=== PATIENT | male | born 1970 | race Caucasian/White ===

== ENCOUNTER 2022-11-16 09:39 | Inpatient (IN) ==
--- NOTE | 2022-11-16 11:00 | XRay Report ---
XR chest 1V not portable HISTORY: 52 years-old Male Chest pain, nonspecific COMPARISON: 03/31/2022 TECHNIQUE: PA view of the chest FINDINGS: Cardiomediastinal and hilar silhouettes are within normal limits. No pneumothorax, pleural effusion, airspace consolidation or pulmonary edema. Bones of the chest appear grossly intact. IMPRESSION: No acute process. ACT 112: Negative or not required by law. The above report was generated using voice recognition software. It may contain grammatical, syntax o r spelling errors. Electronically signed by: Murray Recio M.D. 11/16/2022 10:59 AM
--- NOTE | 2022-11-16 11:13 | Emergency Department Note ---
History of Present Illness General Chief complaint: Cardiac Assessment Stated complaint: POSSIBLE CARDIAC ATTACK Time Seen by Provider: 11/16/22 10:39 History of Present Illness 52-year-old male presents emergency department substernal chest pressure that radiated to his back. Patient was lifting an amplifier that weighs 60 pounds after that he felt dizzy he had substernal chest pressure that radiated to his back. There is no diaphoresis no shortness of breath no nausea no vomiting no jaw pain no neck pain. There are no other mitigating or alleviating factors. It went away very quickly and then returned a few minutes later with substernal chest pressure. Home Medications Medication Instructions Recorded Confirmed Type ibuprofen 200 mg tablet (Advil) 400 mg PO Q6H PRN Pain 11/16/22 11/16/22 History Allergies Allergy/AdvReac Type Severity Reaction Status Date / Time No Known Allergies Allergy Unverified 11/16/22 12:36 Past Med/Surg History Medical History Anxiety Prostatitis CHRONIC Surgical History History of open reduction and internal fixation (ORIF) procedure RIGHT FOREARM History of tonsillectomy History of tooth extraction WISDOM TEETH Family History Father Family history of diabetes mellitus Social History Smoking Status: Former smoker Cigarettes Per Day: 20; Second Hand Exposure: Yes (MOTHER SMOKED); Do You Dip or Chew Tobacco: No; Hx Alcohol Use: Yes Alcohol type: beer, wine and hard liquor Hx Substance Use: No Preferred Language: Belarusian Communication Ability: Effective Community Relations Officer Required: No Beliefs That Will Affect Care: None Current Living Situation: Spouse and Family current occupational status: employed current occupation: [employer] Feels Safe at Home: Yes Assistive Devices: Glasses Review of Systems A total of 10 systems reviewed and were otherwise negative Cardiovascular: + chest pain Physical Exam Vital Signs Vital Signs - 24 hr 11/16/22 09:43 11/16/22 11:29 11/16/22 11:29 Temperature 36.5 C Temperature Source Temporal Artery Scan Pulse Rate 95 H 67 Pulse Rhythm Regular Regular Respiratory Rate 20 16 Respiratory Effort / Characteristics Non-Labored Spontaneous Respiratory Depth Normal Blood Pressure 149/83 H Blood Pressure Mean 105 Pulse Oximetry 97 98 98 Oxygen Delivery Method Room Air Room Air Sepsis Recent Fever Within 48 Hours No Sepsis New/Unexplained Change in Mental Status No Sepsis Action Taken by Nursing No Action Required 11/16/22 12:27 Temperature Temperature Source Pulse Rate 58 L Pulse Rhythm Respiratory Rate Respiratory Effort / Characteristics Respiratory Depth Blood Pressure Blood Pressure Mean Pulse Oximetry Oxygen Delivery Method Sepsis Recent Fever Within 48 Hours Sepsis New/Unexplained Change in Mental Status Sepsis Action Taken by Nursing GENERAL: Patient is awake alert in no acute distress patient is resting comfortably and showing no signs of anxiety EYES: The conjunctivae are clear. The pupils are round and reactive. EARS, NOSE, MOUTH AND THROAT: The nose is without any evidence of any deformity. Mucous membranes are moist. Tongue is midline. NECK: The neck is nontender and supple. RESPIRATORY: Normal respiratory effort is noted there is no evidence of wheezing rhonchi or rales CARDIOVASCULAR: Regular rate and rhythm noted there no murmurs rubs or gallops normal S1 normal S2. GASTROINTESTINAL: The abdomen is soft. Abdomen is nontender. BACK: No midline tenderness or or step-off noted range of motion in flexion extension as well as rotation no signs of muscle spasm noted MUSCULOSKELETAL/EXTREMITIES: There is no evidence of gross deformity full range of motion is noted in the hips and shoulders. SKIN: There is no obvious evidence of any rash. There are no petechiae, pallor or cyanosis noted. NEUROLOGIC: Patient is awake alert and oriented x3 strength is symmetric Course Reevaluation(s) Reevaluation #1: Patient is currently pain-free. Patient was given aspirin in the emergency department Time: 12:12 Consultations Consultation #1: Case was discussed with the [facility] hospitalist Dr. Oleary for admission for ACS Time: 12:12 Administered Medications Discontinued Medications Aspirin (Aspirin Chew 324 Mg) 324 mg PO NOW STA Stop: 11/16/22 11:50 Last Admin: 11/16/22 11:55 Dose: 324 mg Documented By: DOLLY Medical Decision Making Medical Records Attestation: I reviewed the patient's medical records. Home Medications Current Medication List: was personally reviewed by me Laboratory Data Attestation: I reviewed the patient's lab results. Patient has a mildly elevated troponin 11/16/22 11:11/16/22 11:01 Lab Results 11/16/22 11/16/22 11/16/22 Range/Units 11:01 11:01 11:01 WBC 5.85 (4.8-10.8) K/ul RBC 5.25 (4.70-6.10) M/uL Hgb 15.5 (14.0-18.0) g/dl Hct 45.0 (42.0-52.0) % MCV 85.7 (80.0-100.0) fL MCH 29.5 (25.0-34.0) pg MCHC 34.4 (32.0-36.0) g/dL RDW Std Deviation 38.3 (36.4-46.3) fL RDW Coeff of Regina 12.3 (11.5-14.5) % Plt Count 230 (130-400) K/uL MPV 9.5 (9.4-12.4) fL Immature Gran % (Auto) 0.7 % Neut % (Auto) 72.3 % Lymph % (Auto) 17.9 % Wy[place] % (Auto) 7.2 % Eos % (Auto) 1.2 % Baso % (Auto) 0.7 % Neut # (Auto) 4.23 (1.40-6.50) K/uL Lymph # (Auto) 1.05 L (1.2-3.4) K/uL Wy[place] # (Auto) 0.42 (0.11-0.59) K/uL Eos # (Auto) 0.07 (0-0.50) K/uL Baso # (Auto) 0.04 (0-0.2) K/uL Immature Gran # (Auto) 0.04 (0.01-0.20) K/uL PT 11.1 (9.0-12.0) Seconds INR 1.0 (0.9-1.1) APTT 27.5 (21.0-31.0) Seconds PTT Ratio 1.0 Sodium 140 (136-145) mmol/L Potassium 3.9 (3.5-5.1) mmol/L Chloride 109 H (98-107) mmol/L Carbon Dioxide 27 (21-32) mmol/L Anion Gap 4 (3-11) BUN 17 (6-23) mg/dl Creatinine 0.90 (0.6-1.4) mg/dl Est Cr Clr Drug Dosing 130.3 ml/min Est GFR ( Amer) 113.4 ml/min Est GFR (Non-Af Amer) 97.9 ml/min BUN/Creatinine Ratio 18.9 (10-20) Glucose 99 (70-99(Fasting)) mg/dl Calcium 9.3 (8.6-10.3) mg/dl Total Bilirubin 0.7 (0.2-1.0) mg/dl AST 28 (13-39) U/L ALT 42 (7-52) U/L Alkaline Phosphatase 178 H (34-104) U/L Troponin I High Sens 39.9 H (0-20) pg/ml Total Protein 7.1 (6.0-8.3) gm/dl Albumin 4.6 (3.4-5.0) gm/dl Globulin 2.5 (2.5-4.0) gm/dl Albumin/Globulin Ratio 1.8 (0.9-2) Lipase 27 (11-82) U/L Imaging Data Attestation: I personally reviewed and interpreted this imaging study as follows: My Impression: Chest x-ray interpreted by me negative for infiltrate Radiologist's Impression: Chest X-Ray 11/16/22 10:25 XR chest 1V not portable HISTORY: 52 years-old Male Chest pain, nonspecific COMPARISON: 03/31/2022 TECHNIQUE: PA view of the chest FINDINGS: Cardiomediastinal and hilar silhouettes are within normal limits. No pneumothorax, pleural effusion, airspace consolidation or pulmonary edema. Bones of the chest appear grossly intact. IMPRESSION: No acute process. ACT 112: Negative or not required by law. The above report was generated using voice recognition software. It may contain grammatical, syntax or spelling errors. Electronically signed by: Murray Recio M.D. 11/16/2022 10:59 AM ECG Data Attestation: I personally reviewed and interpreted this ECG as follows: Additional Comments: EKG interpreted by me normal sinus rhythm rate of 79 normal intervals normal axis no obvious ST segment elevation or depression Telemetry was ordered by me, interpreted as normal sinus rhythm rate of 79 MDM Narrative Medical decision making differential diagnosis includes angina unstable angina acute coronary syndrome acute MN musculoskeletal chest pain electrolyte abnormality costochondritis Plan is to check labs, EKG, chest x-ray Independent history was provided to me by the patient's at bedside Patient's heart score is a 4 Patient has a mildly elevated troponin with a story that is concerning for acute coronary syndrome. The case was discussed with Dr. Oleary for admission, I do not suspect thoracic aortic dissection or pulmonary embolism. Patient was given aspirin in the emergency department Impression & Plan Chest pain, ACS (acute coronary syndrome) Discharge Plan Visit Data Chief Complaint: Cardiac Assessment Stated Complaint: POSSIBLE CARDIAC ATTACK ED Provider: Carmine Gonzalez Discharge Problem: Chest pain, ACS (acute coronary syndrome) Patient Disposition: Admitted As Inpatient Forms Stand Alone Forms: My [facility] Prescriptions Prescriptions: No Action ibuprofen [Advil] 200 mg Tablet 400 mg PO Q6H PRN (Reason: Pain) Referrals Referrals: Enrique Abdullahi [Primary Care Provider] -
[2022-11-16 11:35] LABS: Basophils # (auto) 0.04 K/uL (0-0.2); Basophils % (auto) 0.7 %; Eosinophils # (auto) 0.07 K/uL (0-0.50); Eosinophils % (auto) 1.2 %; Hemoglobin 15.5 g/dl (14.0-18.0); Immature Granulocytes # (auto) 0.04 K/uL (0.01-0.20); Immature Granulocytes % (auto) 0.7 %; Lymphocytes # (auto) 1.05 K/uL (1.2-3.4); Lymphocytes % (auto) 17.9 %; Mean Corpuscular Hemoglobin 29.5 pg (25.0-34.0); Mean Corpuscular Hgb Conc 34.4 g/dL (32.0-36.0); Mean Corpuscular Volume 85.7 fL (80.0-100.0); Mean Platelet Volume 9.5 fL (9.4-12.4); Monocytes # (auto) 0.42 K/uL (0.11-0.59); Monocytes % (auto) 7.2 %; Neutrophils # (auto) 4.23 K/uL (1.40-6.50); Neutrophils % (auto) 72.3 %; Platelet Count 230 K/uL (130-400); RDW Coefficient of Variation 12.3 % (11.5-14.5); RDW Standard Deviation 38.3 fL (36.4-46.3); Red Blood Count 5.25 M/uL (4.70-6.10); White Blood Count 5.85 K/ul (4.8-10.8)
[2022-11-16 11:39] LABS: Albumin Globulin Ratio 1.8 (0.9-2); Albumin Level 4.6 gm/dl (3.4-5.0); BUN Creatinine Ratio 18.9 (10-20); Bilirubin,Total 0.7 mg/dl (0.2-1.0); Calcium 9.3 mg/dl (8.6-10.3); Creatinine Clr Calc Pharmacy 130.3 ml/min; Est GFR (African American) 113.4 ml/min; Est GFR (Non-African American) 97.9 ml/min; Globulin 2.5 gm/dl (2.5-4.0); Potassium 3.9 mmol/L (3.5-5.1); Total Protein 7.1 gm/dl (6.0-8.3)
[2022-11-16 11:45] LABS: Troponin I High Sensitivity 39.9 pg/ml (0-20)
[2022-11-16] MEDS ORDERED: ASPIRIN CHEW 324 MG PO STA (11:49)
[2022-11-16 11:57] LABS: Partial Thromboplastin Time 27.5 Seconds (21.0-31.0); Prothrombin Time 11.1 Seconds (9.0-12.0)
--- NOTE | 2022-11-16 12:09 | History & Physical Report ---
Date of Service November 16, 2022 Assessment & Plan (1) Chest pain, rule out acute myocardial infarction: Plan: Initial high sensitivity troponin 39.9 pg/ml. Repeat pending - if significantly increasing will start on ACS treatment Either way will observe in PCU given HEART score 4 - moderate risk EKG without ischemic changes TTE ordered - result pending ASA 324mg PO given Further treatment depending on repeat troponin Plan VTE Prophylaxis - deferred pending repeat troponin Diet - heart healthy, NPO after midnight Disposition - observation to PCU Admission and Anticipated Discharge Date Admission Date: November 16, 2022 History of Present Illness Chief Complaint: Chest pain Primary Care Provider: Enrique Abdullahi Eliza Owen is a 52 year old male who presents to the ER with midsternal chest and back pain. Started around 8:45am this morning after moving 50-60lb amplifier and he went to text his . Lasted 5 minutes, went away when he sat down. Quickly returned when he stood up again this time lasting for 10 minutes. Resolved by the time he came to the ER. Pain is central burning stabbing pain substernal and behind his shoulder blades at his back. Associated flushing. No associated shortness of breath or nausea. Tingling in fingers at one point but no real radiation down arms or up to jaw. No orthopnea, PND, palpitations or claudication. History significant for smoking but quit 2 years ago - although had one today around 8am. Smoked half a pack a day for 20 years - 10 pack-year smoking. No family history of coronary artery disease. No hypertension of diabetes. He has been taking Advil as need for pain in heel of foot - x2 at a time usually once or twice a week for the last few months. His has also noted over last month he is fatigued after every meal. No rece nt acid reflux but does note if he sleeps on right side and eats too close to bed he gets reflux. He drank half a cup of coffee shortly before having the chest pain. Allergies Allergy/AdvReac Type Severity Reaction Status Date / Time No Known Allergies Allergy Unverified 11/16/22 12:36 Home Medications Medication Instructions Recorded Confirmed Type ibuprofen 200 mg tablet (Advil) 400 mg PO Q6H PRN Pain 11/16/22 11/16/22 History Past Med/Surg History Medical History Anxiety Prostatitis CHRONIC Surgical History History of open reduction and internal fixation (ORIF) procedure RIGHT FOREARM History of tonsillectomy History of tooth extraction WISDOM TEETH Family History Father Family history of diabetes mellitus Social History Smoking Status: Former smoker Tobacco Type: Cigarettes Age Started Using Tobacco: 30; Age Quit Using Tobacco: 50; packs per day: 0.5; Cigarettes Per Day: 20; Second Hand Exposure: No; Do You Dip or Chew Tobacco: No; Hx Alcohol Use: Yes Alcohol type: beer Hx Substance Use: No Preferred Language: Bulgarian Communication Ability: Effective Lithographic Press Feeder Required: No Beliefs That Will Affect Care: None Current Living Situation: Spouse current occupational status: employed current occupation: [employer] Feels Safe at Home: Yes Assistive Devices: Glasses Review of Systems Review of Systems: All systems reviewed & are unremarkable except as noted in HPI & below Physical Exam Constitutional: WD/WN, vitals as above Eyes: + anicteric sclerae; normal pupil size ENMT: external ear and nose normal, oropharynx normal Respiratory: normal respiratory effort, lungs clear to auscultation Cardiovascular: RRR, no murmur, no edema Gastrointestinal (Abdomen): normal bowel sounds, soft, nontender, no hepatosplenomegaly Musculoskeletal: no cyanosis or clubbing, extremities motor strength 5/5 Skin: no rashes, warm and dry Neurologic: moves all extremities and awake; not confused Psychiatric: A+Ox3, euthymic affect Results & Data Results & Data Vital Signs (Past 12 Hours) Vital Signs Temp Pulse Resp BP Pulse Ox O2 Del Method 11/16/22 11:29 67 16 98 Room Air 11/16/22 11:29 98 Room Air 11/16/22 09:43 36.5 C 95 H 20 149/83 H 97 Laboratory Results Abnormal lab results 11/16/22 11/16/22 Range/Units 11:01 11:01 Lymph # (Auto) 1.05 L (1.2-3.4) K/uL Chloride 109 H (98-107) mmol/L Alkaline Phosphatase 178 H (34-104) U/L Troponin I High Sens 39.9 H (0-20) pg/ml Diagnostic Findings XR chest 1V not portable HISTORY: 52 years-old Male Chest pain, nonspecific COMPARISON: 03/31/2022 TECHNIQUE: PA view of the chest FINDINGS: Cardiomediastinal and hilar silhouettes are within normal limits. No pneumothor ax, pleural effusion, airspace consolidation or pulmonary edema. Bones of the chest appear grossly intact. IMPRESSION: No acute process. Medications Administered ER Medications Given: Aspirin 324mg PO ECG Rate (beats per minute): 79 Rhythm: normal sinus Findings: no acute ischemic change Comparison ECG Date: no prior available Code Status & VTE Plan Code Status Full VTE Prophylaxis Plan VTE Prophylaxis will be ordered: No PG Care Time/CCT Total # of Minutes Spent Total Time Spent with Patient: Total time spent is greater than 50% in coordination of care (as documented) at patient's floor/unit and/or counseling patient: Coding Level of Care Code 45962 INT INP/OBS CARE 3/75MIN Diagnoses Chest pain, rule out acute myocardial infarction R07.9
--- NOTE | 2022-11-16 12:55 | Electrocardiogram Report ---
Test Reason : Blood Pressure : / mmHG Vent. Rate : 079 BPM Atrial Rate : 079 BPM P-R Int : 150 ms QRS Dur : 092 ms QT Int : 372 ms P-R-T Axes : 060 053 047 degrees QTc Int : 426 ms Normal sinus rhythm with sinus arrhythmia Normal ECG No previous ECGs available Confirmed by Pk Driscoll ([id number]) on 11/16/2022 12:55:43 PM Referred By: REFERRED SELF Confirmed By:Pk Driscoll
[2022-11-16 13:42] LABS: Magnesium 2.2 mg/dl (1.7-2.4)
[2022-11-16 13:53] LABS: Troponin I High Sensitivity 142.7 pg/ml (0-20)
[2022-11-16] MEDS ORDERED: Heparin IV Adult Wt-Based Low-Dose WITH Bolus Protocol IV SCH (14:00)
[2022-11-16] MEDS ORDERED: POTASSIUM CHLORIDE CRTAB 20 MEQ TABCR PO STA (14:03)
--- NOTE | 2022-11-16 14:04 | XCELERA ---
[id number]
[2022-11-16] MEDS ORDERED: HEPARIN SOD (PORCINE) 1000 UNIT/ML IV ONE ×2 (14:08→22:30)
[2022-11-16] MEDS: HEPARIN SODIUM/DEXTROSE 25,000 UNITS/500 ML BAG IV SCH ×2 (14:31→22:11)
[2022-11-16] MEDS ORDERED: ACETAMINOPHEN 325 MG TAB PO PRN (15:12)
--- NOTE | 2022-11-16 15:41 | Communication Note ---
Date of Service: November 16, 2022 Troponin increased 39.9 -> 142.7. No current chest pain. Started on low dose heparin IV drip with bolus. Start metoprolol tartrate 25mg PO BID (discussed wi th patient to watch out for worsening orthostasis as he notes longstanding dizziness on standing up fast), atorvastatin 40mg PO daily. Lipid panel and HbA1C with Am labs. Discussed with Dr Driscoll and asked to discuss with Dr Monroy - given no current indication for urgent cardiac catheterization, this will be planned for tomorrow pending formal cardiology consult. NPO after midnight. Updated patient on diagnosis of NSTEMI - advised to inform his RN is having any further chest pain.
--- NOTE | 2022-11-16 16:03 | Cardiology Consultation ---
Date of Consultation November 16, 2022 Assessment & Plan (1) ACS (acute coronary syndrome): We will trend his troponins. I agree with heparin drip. Tentatively plan for coronary angiography plus or minus PCI in the morning. We discussed the risk, benefits, and alternatives to cardiac catheterization. His questions were answered in full. He voiced understanding and wished to proceed with catheterization plus or minus PCI. His was present and also agreed and understood. History of Present Illness Reason for Consultation: Chest discomfort, elevated troponin Attending Physician: Karri Oleary MD History of Present Illness 52-year-old gentleman who denies history of hypertension, dyslipidemia, or cardiac issues presents after developing brief episode of substernal chest pressure radiating to the back. 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 It resolved but then restarted spontaneously while resting and lasted about 10 minutes. It then resolved but he decided to seek medical attention. His EKG in the emergency department did not show any acute ischemic EKG changes. He had an echocardiogram which revealed mildly reduced EF of 45%. His initial cardiac troponin was within normal limits but a second cardiac troponin was mildly elevated. His chest x- ray was within normal limits. Vital signs were also initially within normal limits. Patient was placed on heparin drip. I was asked to see him secondary to the presentation and positive troponin. Patient denies any preceding anginal symptoms. He denies dyspnea on exertion, syncope, near syncope, orthopnea, PND, racing heartbeat, palpitations, or edema. He did become briefly lightheaded with initial chest pain onset. He smoked for 20 years but "quit" 2 years ago. However, he still smokes on occasion. His alcohol intake is sporadic typically involving beer having 1-2 at a time with only occasional larger volume of alcohol intake. He does not drink more than a few times per week. He admits to having mild cold-like symptoms yesterday. He voices no other complaints or concerns at this time. Allergies Allergy/AdvReac Type Severity Reaction Status Date / Time No Known Allergies Allergy Unverified 11/16/22 12:36 Home Medications Medication Instructions Recorded Confirmed Type ibuprofen 200 mg tablet (Advil) 400 mg PO Q6H PRN Pain 11/16/22 11/16/22 History Patient History Medical History Anxiety Prostatitis CHRONIC Surgical History History of open reduction and internal fixation (ORIF) procedure RIGHT FOREARM History of tonsillectomy History of tooth extraction WISDOM TEETH Family History Father Family history of diabetes mellitus Social History Smoking Status: Former smoker Cigarettes Per Day: 20; Second Hand Exposure: Yes (MOTHER SMOKED); Do You Dip or Chew Tobacco: No; Hx Alcohol Use: Yes Alcohol type: beer, wine and hard liquor Hx Substance Use: No Preferred Language: Senegalese Communication Ability: Effective Weasand Trimmer Required: No Beliefs That Will Affect Care: None Current Living Situation: Spouse and Family current occupational status: employed current occupation: [employer] Feels Safe at Home: Yes Assistive Devices: Glasses Review of Systems Review of Systems: Negative except as per HPI Physical Exam Constitutional: WD/WN, vitals as above Eyes: Extraocular muscles intact. Sclera are anicteric. ENMT: Oral mucosa is pink moist and intact Neck: No JVD or bruits Respiratory: Clear to auscultation bilaterally. No wheezing, rhonchi, or rales. Cardiovascular: Regular rate and rhythm. S4 gallop. No rubs or murmurs. Musculoskeletal: no cyanosis or clubbing, extremities motor strength 5/5 Neurologic: Cognition is intact. Speech is fluent. No focal motor deficits. No tremor. Psychiatric: A+Ox3, euthymic affect Results & Data Vital Signs (Past 12 Hours) Vital Signs Temp Pulse Resp BP Pulse Ox O2 Del Method 11/16/22 15:00 57 L 17 123/80 99 Room Air 11/16/22 14:00 60 13 131/79 98 Room Air 11/16/22 13:00 62 16 122/85 98 Room Air 11/16/22 12:00 70 13 125/81 99 Room Air 11/16/22 12:27 58 L 11/16/22 11:29 67 16 98 Room Air 11/16/22 11:29 98 Room Air 11/16/22 09:43 36.5 C 95 H 20 149/83 H 97 PG Care Time/CCT Total # of Minutes Spent Total Time Spent with Patient: Total time spent is greater than 50% in coordination of care (as documented) at patient's floor/unit and/or counseling patient: Coding Level of Care Code 79572 OFFICE CONSULT LVL Diagnoses ACS (acute coronary syndrome) I24.9
[2022-11-16] MEDS ORDERED: METOPROLOL TARTRATE 25 MG TAB PO SCH (21:00)
[2022-11-16] MEDS ORDERED: ATORVASTATIN 40 MG TAB PO SCH (21:00)
[2022-11-16 21:45] LABS: Partial Thromboplastin Ratio 1.1; Partial Thromboplastin Time 30.5 Seconds (21.0-31.0)
[2022-11-16] MEDS ORDERED: HEPARIN IV BOLUS 4,000 UNITS in SYRINGE 0 ML IV ONE ×2 (22:17→22:25)
[2022-11-17 02:56] LABS: Albumin Globulin Ratio 1.8 (0.9-2); Albumin Level 4.2 gm/dl (3.4-5.0); BUN Creatinine Ratio 16.7 (10-20); Bilirubin,Total 0.7 mg/dl (0.2-1.0); Calcium 8.8 mg/dl (8.6-10.3); Chol HDL Ratio 3.6 (0-5); Creatinine Clr Calc Pharmacy 122.2 ml/min; Est GFR (African American) 104.9 ml/min; Est GFR (Non-African American) 90.5 ml/min; Globulin 2.4 gm/dl (2.5-4.0); Potassium 3.7 mmol/L (3.5-5.1); Total Protein 6.6 gm/dl (6.0-8.3)
[2022-11-17 03:19] LABS: Partial Thromboplastin Ratio 1.5
[2022-11-17] MEDS ORDERED: Nursing to Pharmacy Communication SCH (04:00)
[2022-11-17 07:28] LABS: Estimated Average Glucose 105 mg/dl; Hemoglobin A1C 5.3 % (4.5-5.6)
[2022-11-17] MEDS ORDERED: ASPIRIN 81 MG CHEW ONE ×2 (07:50→07:51)
[2022-11-17] MEDS ORDERED: niCARdipine HCL INJ 2.5 MG/ML 10 ML AMP ONE (08:16)
[2022-11-17] MEDS ORDERED: MIDAZOLAM HCL 1 MG/ML 2ML VIAL ONE ×2 (08:16→08:45)
[2022-11-17] MEDS ORDERED: HEPARIN (PORCINE) 1000 UNIT/ML 10 ML (CATH LAB USE ONLY) ONE (08:16)
[2022-11-17] MEDS ORDERED: NITROGLYCERIN/D5W 100MCG/ML 20ML SYR ONE (08:17)
[2022-11-17] MEDS ORDERED: fentaNYL citrate PF 100 MCG/2 ML VIAL ONE (08:17)
--- NOTE | 2022-11-17 08:23 | Pre Anesthesia Assessment ---
Date of Service November 17, 2022 Pre Sedation Assessment Vital Signs Temp Pulse Pulse Resp BP BP Pulse Ox 11/17/22 07:00 54 L 19 132/73 96 11/17/22 07:32 59 L 18 137/78 97 11/17/22 05:17 50 L 11/17/22 05:00 49 L 15 136/90 96 11/17/22 04:00 50 L 16 144/91 H 97 11/17/22 03:00 50 L 16 152/96 H 97 11/17/22 02:00 50 L 14 135/81 95 11/17/22 01:03 119/78 96 11/17/22 01:00 119/78 11/17/22 00:58 96 11/17/22 00:00 66 19 96 11/16/22 23:00 74 17 96 11/16/22 23:00 122/84 11/16/22 22:00 77 13 115/80 97 11/16/22 21:00 62 20 146/85 H 96 11/16/22 20:00 62 17 96 11/16/22 20:00 134/76 11/16/22 20:01 11/16/22 19:00 55 L 19 111/73 97 11/16/22 18:00 58 L 19 111/75 95 11/16/22 17:00 71 19 126/88 97 11/16/22 16:00 64 16 128/81 98 11/16/22 16:25 63 11/16/22 15:49 69 19 123/80 97 11/16/22 15:00 57 L 17 123/80 99 11/16/22 14:00 60 13 131/79 98 11/16/22 13:00 62 16 122/85 98 11/16/22 12:00 70 13 125/81 99 11/16/22 12:27 58 L 11/16/22 11:29 67 16 98 11/16/22 11:29 98 11/16/22 09:43 36.5 C 95 H 20 149/83 H 97 Pulse Ox O2 Del Method O2 Del Method 11/17/22 07:00 Room Air 11/17/22 07:32 Room Air 11/17/22 05:17 11/17/22 05:00 11/17/22 04:00 11/17/22 03:00 11/17/22 02:00 11/17/22 01:03 11/17/22 01:00 11/17/22 00:58 11/17/22 00:00 11/16/22 23:00 11/16/22 23:00 11/16/22 22:00 11/16/22 21:00 11/16/22 20:00 11/16/22 20:00 11/16/22 20:01 99 Room Air 11/16/22 19:00 11/16/22 18:00 11/16/22 17:00 11/16/22 16:00 11/16/22 16:25 11/16/22 15:49 Room Air 11/16/22 15:00 Room Air 11/16/22 14:00 Room Air 11/16/22 13:00 Room Air 11/16/22 12:00 Room Air 11/16/22 12:27 11/16/22 11:29 Room Air 11/16/22 11:29 Room Air 11/16/22 09:43 Cardiovascular RRR, no murmur, no edema Respiratory normal respiratory effort, lungs clear to auscultation Pre-Sedation Airway Assessment Smoking Status: Former smoker Hx Sleep Apnea: No Short, Thick Neck: No Thyromental Distance: > or= 3.5 Finger Breadths Oral Cavity: + WNL Mallampati Class: II ASA: ASA2 NPO Status Date of Last Intake of Fluids: 11/16/22 Time of Last Intake of Fluids: 21:00 Date of Last Intake of Solid Food: 11/16/22 Time of Last Intake of Solid Foods: 21:00 Notes The planned sedation has been discussed with the patient. Informed Consent was obtained. I have identified the patient, determined the appropriateness of sedation and have assessed the patient immediately prior to the procedure. All medicine(s) and interventions are by my order.
[2022-11-17] MEDS ORDERED: diphenhydrAMINE 50 MG/ML VIAL ONE (08:38)
[2022-11-17 08:58] LABS: Hematocrit (blood only) 43.4 % (42.0-52.0); Hemoglobin 15.1 g/dl (14.0-18.0); Mean Corpuscular Hemoglobin 29.7 pg (25.0-34.0); Mean Corpuscular Hgb Conc 34.8 g/dL (32.0-36.0); Mean Corpuscular Volume 85.3 fL (80.0-100.0); Mean Platelet Volume 9.6 fL (9.4-12.4); Platelet Count 220 K/uL (130-400); RDW Coefficient of Variation 12.4 % (11.5-14.5); RDW Standard Deviation 38.3 fL (36.4-46.3); Red Blood Count 5.09 M/uL (4.70-6.10); White Blood Count 7.88 K/ul (4.8-10.8)
[2022-11-17] MEDS ORDERED: ASPIRIN 81 MG ECTAB PO SCH (09:00)
--- NOTE | 2022-11-17 09:15 | Post Anesthesia Assessment ---
Date of Service November 17, 2022 Post Sedation Assessment Vital Signs Temp Pulse Pulse Resp BP BP Pulse Ox 11/17/22 07:00 54 L 19 132/73 96 11/17/22 07:32 59 L 18 137/78 97 11/17/22 05:17 50 L 11/17/22 05:00 49 L 15 136/90 96 11/17/22 04:00 50 L 16 144/91 H 97 11/17/22 03:00 50 L 16 152/96 H 97 11/17/22 02:00 50 L 14 135/81 95 11/17/22 01:03 119/78 96 11/17/22 01:00 119/78 11/17/22 00:58 96 11/17/22 00:00 66 19 96 11/16/22 23:00 74 17 96 11/16/22 23:00 122/84 11/16/22 22:00 77 13 115/80 97 11/16/22 21:00 62 20 146/85 H 96 11/16/22 20:00 62 17 96 11/16/22 20:00 134/76 11/16/22 20:01 11/16/22 19:00 55 L 19 111/73 97 11/16/22 18:00 58 L 19 111/75 95 11/16/22 17:00 71 19 126/88 97 11/16/22 16:00 64 16 128/81 98 11/16/22 16:25 63 11/16/22 15:49 69 19 123/80 97 11/16/22 15:00 57 L 17 123/80 99 11/16/22 14:00 60 13 131/79 98 11/16/22 13:00 62 16 122/85 98 11/16/22 12:00 70 13 125/81 99 11/16/22 12:27 58 L 11/16/22 11:29 67 16 98 11/16/22 11:29 98 11/16/22 09:43 36.5 C 95 H 20 149/83 H 97 Pulse Ox O2 Del Method O2 Del Method 11/17/22 07:00 Room Air 11/17/22 07:32 Room Air 11/17/22 05:17 11/17/22 05:00 11/17/22 04:00 11/17/22 03:00 11/17/22 02:00 11/17/22 01:03 11/17/22 01:00 11/17/22 00:58 11/17/22 00:00 11/16/22 23:00 11/16/22 23:00 11/16/22 22:00 11/16/22 21:00 11/16/22 20:00 11/16/22 20:00 11/16/22 20:01 99 Room Air 11/16/22 19:00 11/16/22 18:00 11/16/22 17:00 11/16/22 16:00 11/16/22 16:25 11/16/22 15:49 Room Air 11/16/22 15:00 Room Air 11/16/22 14:00 Room Air 11/16/22 13:00 Room Air 11/16/22 12:00 Room Air 11/16/22 12:27 11/16/22 11:29 Room Air 11/16/22 11:29 Room Air 11/16/22 09:43 Recovery Score Activity: Moves 4 extremities Respiration: Deep Breath/Cough Circulation: +/-20% PreAnes Value Consciousness: Fully Awake Oxygen Saturation: > 92% On Room Air Discharge Sedation Level of Care: Fast Track Phase II Post Sedation Plan On clinical assessment, the patient appears to have tolerated the sedation without complications. Patient is recovering as anticipated. Patient will continue to be monitored by nursing and may be discharged when sedation discharge criteria are met per below protocol. Upon Completions of procedure up to 15 minutes continue every 5 minute vital signs and the P.A.R. score; then discharge to a Phase I or Fast Track to Phase II per the following guidelines: * Discharge Patient to appropriate Phase II area if PAR is 8 or greater or return to pre- procedure baseline. The post - procedure orders will be as directed. * If PAR score is less than 8 or not return to pre-procedure baseline then patient will follow Phase I monitoring till PAR is reached for Phase II. The Phase I may be done in procedure room or may call to secure a Phase I area. * If naloxone or flumazenil are used for reversal, hold in Phase I for continued monitoring from when last reversal dose was given for a minimum of 60 minutes or longer pending the nurse and/or physician discretion of patient condition before discharge to Phase II. Please call the Sedation Physician to re-evaluate and complete post-note for discharge to Phase II area. Do NOT discharge from procedure sedation or Phase 1 until post- sedation evaluation note is complete by procedure /sedation MD Sedation Discharge Instructions to be given to the patient at discharge to home.
--- NOTE | 2022-11-17 09:31 | Cardiac Catheterization ---
ACC Data: Web Design Intern Cardiac Status Clinical evaluation leading to the procedure CAD Presenation: Non STEMI Anginal Classification: CCS IV Heart Failure: No Cardiogenic Shock within 24 Hours: No Cardiac Arrest within 24 Hours: No Imaging Studies Past 6 Months: No Stress Studies Past 6 Months: No STEMI OR Non-STEMI Symptom Onset Date: 11/16/22 Coronary Anatomy Dominant: Right Left Main (% Stenosis): Normal LAD (% Stenosis): Normal D1 (% Stenosis): Normal D2 (% Stenosis): Normal Circumflex (% Stenosis): Normal OM1 (% Stenosis): Normal OM2 (% Stenosis): Normal L PL1 (% Stenosis): Normal RCA (% Stenosis): Normal R PDA (% Stenosis): Normal R PL1 (% Stenosis): Normal Diagnostic Physicians Name: Bj Monroy MD, PhD Closure Device Percutaneous Entry Location: Radial Closure Device: Radial Band Recommendations: Medical Therapy and/or Counseling Intraprocedure Events Significant Disection: No Perforation: No Cardiac Cath Procedure Full Procedure Date November 17, 2022 Pre-Procedure Diagnosis Pre-Procedure Diagnosis: Non STEMI AUC Score AUC Score: 07 Post-Procedure Diagnosis Post-Procedure Diagnosis: Normal Coronary Arteries Procedure(s) Performed Procedure(s) Performed: Coronary Angiography Compotype Operator Bj Monroy MD, PhD Estimated Blood Loss Estimated Blood Loss: 2 ml Medication(s) Medication(s): Diphenhydramine, Fentanyl, Heparin, Lidocaine 1%, Nicardipine, Nitroglycerin and Versed Summary of Findings Brief description: Patient was brought to the cardiac catheterization suite where he was shaved and prepped in a sterile fashion. Sedated using IV Versed and fentanyl. Soft tissues of the right wrist were anesthetized using 2 mL of 1% Xylocaine. The right radial artery was accessed with a modified Seldinger technique and a 6 Israeli radial artery glide sheath was placed. Patient was provided anticoagulation with IV heparin and antispasmodics including nicardipine and nitroglycerin. All catheters were advanced and exchanged over a 0.035 J-tip wire. Left coronary angiography was performed in orthogonal views with a 5 Israeli [place] 4 diagnostic catheter and completed with a 5 Israeli JL 4 diagnostic catheter. Right coronary angiography was performed in orthogonal views with a 5 Israeli JR4 diagnostic catheter. Catheters were removed. Radial artery sheath was removed. Hemostasis was obtained using the TR band. Patient was hemodynamically stable and asymptomatic. He was returned to the recovery area. This ended the case. Coronary angiography findings: JMW-vhuse-bogwfcm vessel which is short in length and bifurcates into the LAD and circumflex. No disease. LAD-large caliber and transapical. Provides several large septal branches. First diagonal is medium to large and branching. Second diagonal is large and branching. There is no angiographically evident disease in the LAD or its branches. BHg-yhakb-doyvdhq and nondominant. Travels in the AV groove where it almost immediately provides a very large high arising OM1. This vessel has 2 major branches each of which has 2-3 significant branches. The AV groove circumflex becomes medium in caliber and provides a small to medium caliber OM 2 and then terminates distally and a medium caliber posterolateral branch. There is no angiographically evident coronary disease in the circumflex or its branches. RCA- This is large and dominant. Distally bifurcates into a small posterolateral branch and a large PDA. There is no angiographically evident disease in the RCA or its branches. Summary: 1. Normal epicardial coronary arteries 2. Recommend guideline directed medical therapy for primary prevention of coronary disease to include; abstinence from tobacco, regular cardiovascular exercise, cardiac prudent diet, and treatment of comorbid disease to clinical targets. Hemodynamics Rest Ao:: 88/65 mmHg Final Ao: 104/78 mmHg LV: Not performed Recommendations Recommendations: Medical Therapy and/or Counseling Radiation Exposure (mGy) 935 mGy, fluoroscopy time 3.4 minutes Contrast (mls) 64 mL Anesthesia 3 mg IV Versed, 75 mcg IV fentanyl, 25 mg IV Benadryl Procedural Complication(s) None Disposition Recovery Room\PACU I attest to the content of the Intraoperative Record and any orders documented therein. Any exceptions are noted below. [facility] Card Cath Procedure Codes Cardiac Catheterization Procedure 1: Cardiovascular Cath Procedures: 60115 Coronaries Moderate Sedation Procedure 1: Sedation/Anesthesia: 44215 Mod Sedation by the same physician;Init15 Min Child Age 5 & Up (Initial 15 min, start time 0839, end time 0854) PG Care Time/CCT Total # of Minutes Spent Total Time Spent with Patient: Total time spent is greater than 50% in coordination of care (as documented) at patient's floor/unit and/or counseling patient:
--- NOTE | 2022-11-17 11:16 | Cardiology Progress Note ---
Date of Service November 17, 2022 Assessment & Plan (1) Elevated troponin: Plan: Completely normal coronary arteries. No evidence of ACS by coronary angiography. Very modest elevation in high-sensitivity troponin with unknown etiology at this point. His EF was determined to be mildly reduced (45 to 50%) globally by echocardiogram. This itself could account for slight troponin elevation. We also cannot exclude vasospastic event. There was no evidence of significant spontaneous coronary dissection. Endothelial micro-tear cannot be excluded. I therefore recommend that he remain on low-dose aspirin and beta- janine for 3 months to reduce the likelihood of any recurrence. He should also limit his lifting to less than 50 pounds for the next 2 weeks and not perform any strenuous cardiovascular exercises during that time. I have strongly encouraged him to return to the emergency department should he have recurrent chest discomfort. We should also consider non-coronary etiologies of chest discomfort including hiatal hernia, esophageal spasm, musculoskeletal strain, etc. I do recommend the patient follow-up in the primary care provider's office within 2 weeks of discharge. Admission and Anticipated Discharge Date Admission Date: November 16, 2022 Subjective Patient without further chest pain or shortness of breath. Feels well. He underwent coronary angiography earlier today which demonstrated normal coronary arteries. There was 1 spot on the LAD with brief retention of dye but no evidence of dissection flap. He tolerated his procedure well and is at heart rate and blood pressure target. No other complaints or concerns at this time. Review of Systems Review of Systems: Negative except as per HPI Physical Exam Constitutional: WD/WN, vitals as above Neck: No JVD or bruits Respiratory: normal respiratory effort, lungs clear to auscultation Cardiovascular: RRR, no murmur, no edema Musculoskeletal: no cyanosis or clubbing, extremities motor strength 5/5 Neurologic: Cognition is intact. Speech is fluent. No focal deficits. Psychiatric: A+Ox3, euthymic affect Results & Data Vital Signs (Past 12 Hours) Vital Signs Pulse Pulse Resp BP BP Pulse Ox O2 Del Method 11/17/22 11:00 62 16 125/77 98 Room Air 11/17/22 10:45 62 18 121/76 95 Room Air 11/17/22 10:30 62 18 124/73 95 Room Air 11/17/22 10:00 56 L 18 114/71 94 Room Air 11/17/22 10:15 51 L 18 118/72 94 Room Air 11/17/22 09:45 52 L 18 116/72 94 Room Air 11/17/22 09:30 55 L 18 112/70 94 Room Air 11/17/22 09:15 60 18 115/75 94 Room Air 11/17/22 09:09 57 L 18 111/75 93 Room Air 11/17/22 07:00 54 L 19 132/73 96 Room Air 11/17/22 07:32 59 L 18 137/78 97 Room Air 11/17/22 05:17 50 L 11/17/22 05:00 49 L 15 136/90 96 11/17/22 04:00 50 L 16 144/91 H 97 11/17/22 03:00 50 L 16 152/96 H 97 11/17/22 02:00 50 L 14 135/81 95 11/17/22 01:03 119/78 96 11/17/22 01:00 119/78 11/17/22 00:58 96 11/17/22 00:00 66 19 96 PG Care Time/CCT Total # of Minutes Spent Total Time Spent with Patient: Total time spent is greater than 50% in coordination of care (as documented) at patient's floor/unit and/or counseling patient: Coding Level of Care Code 19655 SUB INP/OBS CARE 2/35MIN Diagnoses Elevated troponin R77.8
--- NOTE | 2022-11-17 12:35 | Discharge Summary ---
Date of Service November 17, 2022 Admission HPI Per Admitting Provider Eliza Owen is a 52 year old male who presents to the ER with midsternal chest and back pain. Started around 8:45am this morning after moving 50-60lb amplifier and he went to text his . Lasted 5 minutes, went away when he sat down. Quickly returned when he stood up again this time lasting for 10 minutes. Resolved by the time he came to the ER. Pain is central burning stabbing pain substernal and behind his shoulder blades at his back. Associated flushing. No associated shortness of breath or nausea. Tingling in fingers at one point but no real radiation down arms or up to jaw. No orthopnea, PND, palpitations or claudication. History significant for smoking but quit 2 years ago - although had one today around 8am. Smoked half a pack a day for 20 years - 10 pack-year smoking. No family history of coronary artery disease. No hypertension of diabetes. He has been taking Advil as need for pain in heel of foot - x2 at a time usually once or twice a week for the last few months. His has also noted over last month he is fatigued after every meal. No recent acid reflux but does note if he sleeps on right side and eats too close to bed he gets reflux. He drank half a cup of coffee shortly before having the chest pain. Principal Diagnosis Chest pain with elevated troponin, negative acute coronary syndrome Discharge Exam General-alert and oriented x3, no fevers, no chills HEENT-head atraumatic and normocephalic, pupils equal and reactive to light, extraocular muscles intact Neck-no lymphadenopathy or thyromegaly, trachea midline Chest-clear to auscultation percussion. No rales wheezing or rhonchi Cardiac-regular rate and rhythm, normal S1 and S2 Abdomen-normal bowel sounds, nontender, no hepatosplenomegaly Extremities-no cyanosis, clubbing, or edema. Pressure dressing in place over the right radial artery heart catheterization site at the wrist. Hemostasis achieved Neuro-cranial nerves II through XII intact, motor and sensory function within normal limits, strength symmetrical , no focal deficits Psych-normal affect, normal mood Discharge Data Allergies Allergy/AdvReac Type Severity Reaction Status Date / Time No Known Allergies Allergy Unverified 11/16/22 12:36 Consultations 11/16/22 12:02 ED Decision to Admit Stat 11/16/22 14:21 Consult Cardiology Routine Procedures Performed Operation Date: 11/17/22 08:00 Actual Procedures p Cineradiography w/Routine Exam - Bj Monroy MD, PhD p Cath, Coronaries ONLY (no LV) - Bj Monroy MD, PhD Ordered Studies 11/17/22 06:56 CL Cath Imgs for PACS use only Routine Hospital Course (1) Chest pain, rule out acute myocardial infarction: Left heart catheterization completed today, November 17. No significant coronary artery disease seen. His symptoms are noncardiac. He will be discharged to home after compression of the right wrist heart catheterization site is completed. Per cardiology recommendations, he will remain on aspirin 81 mg daily and metoprolol tartrate 25 mg twice a day for at least the next 3 months. Plan Home todayNovember 17 Total Time Total Time Spent Total Time Spent (In Minutes): 45 minutes Discharge Plan Discharge Items Patient Disposition: Home - Self-Care Reason For Visit: chest pain Discharge Diagnosis: chest pain with elevated troponin, no ACS Activity: Per Instructions section Non-emergency contact: Manager Recruitment Call non-emergency contact if: you have any medication questions, your symptoms worsen, your pain is not controlled, your pain is worsening, you have a fever, your wound has increased redness and your wound has increased drainage Follow-up/Referrals: Enrique Abdullahi [Primary Care Provider] - Diet: Regular and Heart Healthy Addtl Attending Provider Instructions: ACTIVITY RECOMMENDATIONS: Excess manipulation of the wrist should be avoided for the next 24-48 hours. * No lifting over 2 pounds (approximately a 1/2 gallon of milk) with the utilized arm for 24 hours. * No strenuous activity such as bowling or tennis for 3 days. * Keep the site of the procedure covered with a bandage for 24 hours. *You may shower the day after the procedure. Do not take a tub bath or submerge the puncture site in water for the next 3 days. *Do not operate any motorized equipment for 3 days. SPECIAL CARE INSTRUCTIONS: The site may be slightly bruised and sore following your procedure. Should any of the following occur, contact the DrPravin who performed your procedure. 1. Redness/inflammation, swelling, chills, or fever, or colored drainage at procedure site within 3-7 days after your procedure. 2. Coldness, discoloration, ongoing numbness, severe pain, or swelling. Expect mild tingling of hand and tenderness at the puncture site for up to three days. If this persists beyond three days, or other symptoms develop, notify the Dr. who performed your procedure. BLEEDING: If the procedure site on your wrist begins to bleed, do not panic 1. Place 1 or 2 fingers firmly just slightly above the insertion site to stop the bleeding. You may be able to feel your pulse as you hold pressure. 2. Lift your finger after 5 minutes to see if the bleeding has stopped. 3. Once the bleeding has stopped, gently wipe the wrist area clean with a bandage. * If the bleeding from your wrist does not stop after 10 minutes, or if there is a large amount of bleeding or spurting, call 911 (do not drive yourself to the hospital). SKIN IRRITATION: * You may experience some redness and/or swelling in the area where radiation was administered. If any skin irritation occurs, please contact your family physician. FOLLOW UP VISIT: Keep any scheduled doctor appointments. RECOMMEND NO HEAVY (50+ LBS) LIFTING FOR 2 WEEKS Pending Studies at Discharge: No Stand-Alone Forms: My [employer], Smoking Cessation Medications and DC Order Prescriptions: New aspirin 81 mg Tablet,Delayed Release (Dr/Ec) 81 mg PO QAM Qty: 90 3RF metoprolol tartrate 25 mg Tablet 25 mg PO BID Qty: 180 3RF Continued ibuprofen [Advil] 200 mg Tablet 400 mg PO Q6H PRN (Reason: Pain) Discharge Orders: Discharge Order (Routine); Ordered 11/17/22 Ordered By: Mike Marvin Admission Data Admit Date/Time: 11/16/22 13:52 Attending Provider: Mike Marvin Admit Provider: Karri Oleary Primary Care Provider: Enrique Abdullahi Other Providers: Pk Dirscoll ; Karri Oleary Other Interventions: Discharge Summary Assessment (RN) Last Done: 11/17/22 12:20 Coding Level of Care Code 99942 INP/OBS DISCH >30 MIN Diagnoses Chest pain, rule out acute myocardial infarction R07.9
== END 2022-11-17 16:33 | disposition home or self-care (01) | DRG 282 ==
LOC: ED 09:39 → SUATTDRO 13:52 → EDINP 13:52
PROC: CLB.CCO (2022-11-17 08:00)